=== PATIENT | female | born 1965 | race African-American/Black ===

== ENCOUNTER 2017-04-17 16:55 | Emergency (ER) | payer MEDICAID, OTHER ==
[~2017-04-17] VITALS: Ht 162.6 cm; Wt 64.0 kg
[2017-04-17] MEDS ORDERED: KETOROLAC 30MG/ML VIAL IV STA (17:42)
[2017-04-17] MEDS ORDERED: SODIUM CHLORIDE 0.9% 1,000 ML IV ONE (17:42)
[2017-04-17] MEDS ORDERED: ONDANSETRON HCL 4MG/2ML VIAL IV STA (17:42)
[2017-04-17 18:23] LABS: BASOPHILS % 0.3 % (0.0-2.0); CHLORIDE 104 mEq/L (98-107); EOSINOPHILS % 0.5 % (0.0-5.0); HEMATOCRIT. 42.5 % (36.0-48.0); HEMOGLOBIN. 14.2 g/dL (12.0-16.0); LYMPHOCYTES % 13.5 % (20.0-50.0); MEAN CORPUSCULAR HEMOGLOBIN 29.7 pg (28.0-32.0); MEAN CORPUSCULAR VOLUME 88.8 fL (81.0-99.0); MEAN PLATELET VOLUME 7.6 fl (7.4-10.4); MONOCYTES % 3.6 % (2.0-8.0); NEUTROPHILS % 82.1 % (40.0-76.0); PLATELET 326 x1000/uL (130-400); RED BLOOD CELL COUNT 4.79 mill/uL (4.2-5.4); RED CELL DISTRIBUTION WIDTH 13.9 % (11.6-14.6)
[2017-04-17 18:25] LABS: PROTHROMBIN TIME 10.7 sec
[2017-04-17 18:32] LABS: CARBON DIOXIDE 25 mEq/L (21-32)
[2017-04-17] MEDS ORDERED: MORPHINE SULFATE 4 MG/ML CPJ (NOT FOR IM USE) IV ONE (19:00)
[2017-04-17] MEDS ORDERED: ONDANSETRON HCL 4MG/2ML VIAL IV ONE (19:00)
[2017-04-17 19:37] VITALS: BP 164/89
[2017-04-19] MEDS ORDERED: METO100T5 PO (04:46)
[2017-04-19] MEDS ORDERED: METH10TA2 PO (04:46)
[2017-04-19] MEDS ORDERED: OXYC-23 PO (04:46)
[2017-04-19] MEDS ORDERED: MELO-58 PO (04:46)
== END 2017-04-17 21:00 | disposition home or self-care (01) ==
LOC: ER 17:24
DX: R10.9 Unspecified abdominal pain (principal); I10 Essential (primary) hypertension; F17.200 Nicotine dependence, unspecified, uncomplicated; Z98.890 Other specified postprocedural states
CPT/HCPCS: 36415; 74176; 80053; 83690; 85025; 85610; 96361; 96374; 96375; 96376; 99285; J1885; J2270; J2405; J7030; Z7610

== ENCOUNTER 2017-06-19 13:01 | Emergency (ER) | payer MEDICAID ==
[~2017-06-19] VITALS: Ht 162.6 cm; Wt 60.0 kg
[~2017-06-19 13:01] MED LIST: MELO-58 PO; METH10TA2 PO; METO100T5 PO; OXYC-23 PO
[2017-06-19] MEDS ORDERED: KETOROLAC 30MG/ML VIAL IV STA (13:24)
[2017-06-19] MEDS ORDERED: ONDANSETRON HCL 4MG/2ML VIAL IV STA ×2 (13:24→14:53)
[2017-06-19] MEDS ORDERED: SODIUM CHLORIDE 0.9% 1,000 ML IV ONE (13:24)
[2017-06-19 14:13] LABS: BASOPHILS % 0.4 % (0.0-2.0); EOSINOPHILS % 0.6 % (0.0-5.0); HEMATOCRIT. 40.6 % (36.0-48.0); HEMOGLOBIN. 13.9 g/dL (12.0-16.0); LYMPHOCYTES % 23.6 % (20.0-50.0); MEAN CORPUSCULAR HEMOGLOBIN 30.5 pg (28.0-32.0); MEAN CORPUSCULAR VOLUME 88.8 fL (81.0-99.0); MEAN PLATELET VOLUME 7.3 fl (7.4-10.4); MONOCYTES % 4.8 % (2.0-8.0); NEUTROPHILS % 70.6 % (40.0-76.0); PLATELET 352 x1000/uL (130-400); RED BLOOD CELL COUNT 4.57 mill/uL (4.2-5.4); RED CELL DISTRIBUTION WIDTH 13.5 % (11.6-14.6)
[2017-06-19 14:19] LABS: CHLORIDE 103 mEq/L (98-107); PROTHROMBIN TIME 10.8 sec (9.4-11.6)
[2017-06-19 14:29] LABS: CARBON DIOXIDE 27 mEq/L (21-32); ETHANOL BLOOD < 10 mg/dL
[2017-06-19] MEDS ORDERED: MORPHINE SULFATE 4 MG/ML CPJ (NOT FOR IM USE) IV STA (14:53)
[2017-06-19] MEDS ORDERED: CAPSAICIN 0.075% CREAM 60GM TOP PRN (15:30)
[2017-06-19] MEDS ORDERED: METOCLOPRAMIDE HCL 10MG/2ML VIAL IV ONE (15:45)
[2017-06-19 15:59] LABS: CLARITY URINE CLEAR (CLEAR); COLOR URINE YELLOW (YELLOW); GLUCOSE URINE NEGATIVE (NEGATIVE); KETONES URINE 2+ (NEGATIVE); LEUKOCYTE ESTERASE URINE NEGATIVE (NEGATIVE); NITRITE URINE NEGATIVE (NEGATIVE); OCCULT BLOOD URINE TRACE (NEGATIVE); PROTEIN URINE 1+ (NEGATIVE); SPECIFIC GRAVITY URINE 1.027 (1.005-1.030); UROBILINOGEN URINE 0.2 E.U./dL (0.2-1.0)
[2017-06-19 16:14] VITALS: BP 156/95
[2017-06-19 16:32] LABS: *AMPHETAMINES SCREEN URINE NEGATIVE (NEGATIVE); *BARBITURATES SCREEN URINE NEGATIVE (NEGATIVE); *BENZODIAZEPINES SCREEN URINE NEGATIVE (NEGATIVE); *COCAINE SCREEN URINE NEGATIVE (NEGATIVE); CANNABINOID URINE SCREEN NEGATIVE (NEGATIVE); METHADONE URINE SCREEN NEGATIVE (NEGATIVE); OPIATES URINE SCREEN PRESUMTIVE POSITIVE (NEGATIVE); PHENCYCLIDINE URINE SCREEN NEGATIVE (NEGATIVE)
== END 2017-06-19 17:38 | disposition home or self-care (01) ==
LOC: ER 13:50
DX: R10.32 Left lower quadrant pain (principal); R11.2 Nausea with vomiting, unspecified; F17.200 Nicotine dependence, unspecified, uncomplicated; I10 Essential (primary) hypertension
CPT/HCPCS: 36415; 74176; 80053; 80305; 81001; 83690; 85025; 85610; 96361; 96374; 96375; 96376; 99285; G0482; J1885; J2270; J2405; J2765; J7030; Z7610

== ENCOUNTER 2017-10-06 09:23 | Emergency (ER) | payer MEDICAID ==
[~2017-10-06] VITALS: Ht 157.5 cm; Wt 66.0 kg
[~2017-10-06 09:23] MED LIST changes: +MELO-106 PO; -MELO-58 PO; +METO100T16 PO; -METO100T5 PO
[2017-10-06] MEDS ORDERED: ONDANSETRON 4MG ODT PO STA (12:04)
[2017-10-06] MEDS ORDERED: KETOROLAC 30MG/ML VIAL IV STA (12:04)
[2017-10-06] MEDS ORDERED: SODIUM CHLORIDE 0.9% 1,000 ML IV ONE (12:04)
[2017-10-06] MEDS ORDERED: FAMOTIDINE 20MG TABLET PO ONE (12:15)
[2017-10-06 12:54] LABS: BASOPHILS % 0.9 % (0.0-2.0); EOSINOPHILS % 0.5 % (0.0-5.0); HEMOGLOBIN. 14.4 g/dL (12.0-16.0); LYMPHOCYTES % 25.3 % (20.0-50.0); MEAN CORPUSCULAR HEMOGLOBIN 27.3 pg (28.0-32.0); MEAN CORPUSCULAR VOLUME 83.5 fL (81.0-99.0); MEAN PLATELET VOLUME 7.6 fl (7.4-10.4); MONOCYTES % 2.5 % (2.0-8.0); NEUTROPHILS % 70.8 % (40.0-76.0); PLATELET 285 x1000/uL (130-400); RED BLOOD CELL COUNT 5.27 mill/uL (4.2-5.4); RED CELL DISTRIBUTION WIDTH 15.7 % (11.6-14.6)
[2017-10-06] MEDS ORDERED: ONDANSETRON HCL 4MG/2ML VIAL IV ONE (13:00)
[2017-10-06 13:13] LABS: CARBON DIOXIDE 26 mEq/L (21-32); CHLORIDE 102 mEq/L (98-107)
[2017-10-06] MEDS ORDERED: CLONIDINE 0.2MG TABLET PO ONE (13:45)
[2017-10-06] MEDS ORDERED: METOCLOPRAMIDE HCL 10MG/2ML VIAL IV ONE (14:15)
[2017-10-06 14:41] LABS: CLARITY URINE CLEAR (CLEAR); COLOR URINE YELLOW (YELLOW); GLUCOSE URINE NEGATIVE (NEGATIVE); KETONES URINE 2+ (NEGATIVE); LEUKOCYTE ESTERASE URINE TRACE (NEGATIVE); NITRITE URINE NEGATIVE (NEGATIVE); OCCULT BLOOD URINE NEGATIVE (NEGATIVE); PROTEIN URINE TRACE (NEGATIVE)
[2017-10-06 15:06] LABS: *AMPHETAMINES SCREEN URINE PRESUMTIVE POSITIVE (NEGATIVE); *BARBITURATES SCREEN URINE NEGATIVE (NEGATIVE); *BENZODIAZEPINES SCREEN URINE NEGATIVE (NEGATIVE); *COCAINE SCREEN URINE NEGATIVE (NEGATIVE); CANNABINOID URINE SCREEN PRESUMTIVE POSITIVE (NEGATIVE); METHADONE URINE SCREEN NEGATIVE (NEGATIVE); OPIATES URINE SCREEN PRESUMTIVE POSITIVE (NEGATIVE); PHENCYCLIDINE URINE SCREEN NEGATIVE (NEGATIVE)
[2017-10-06 15:35] VITALS: BP 133/85
== END 2017-10-06 16:04 | disposition home or self-care (01) ==
LOC: ER 09:23
DX: F11.23 Opioid dependence with withdrawal (principal); K52.9 Noninfective gastroenteritis and colitis, unspecified; I10 Essential (primary) hypertension
CPT/HCPCS: 36415; 80053; 80305; 81001; 81025; 83690; 85025; 96361; 96374; 96375; 99284; J1885; J2405; J2765; J7030; Q0162; Z7610

== ENCOUNTER 2021-11-22 19:23 | Emergency (ER) | payer MEDICARE, MEDICAID ==
[~2021-11-22] VITALS: Ht 165.1 cm; Wt 68.0 kg
[~2021-11-22 19:23] MED LIST changes: +METH-818 PO; -METH10TA2 PO
[2021-11-22 19:30] VITALS: BP 134/86
== END 2021-11-23 00:44 | disposition left against medical advice (07) ==
LOC: ER 19:23
DX: Z53.21 Procedure and treatment not carried out due to patient leaving prior to being seen by health care provider (principal); R55 Syncope and collapse
CPT/HCPCS: 71045; 93005